=== PATIENT | female | born 2000 | race Caucasian/White ===

== ENCOUNTER → 2021-03-28 06:30 | Outpatient (CLI) | payer OTHER, SELFPAY ==
--- NOTE | 2021-03-28 06:35 | MRI_ITS ---
STUDY: MRI BRAIN WITH AND WITHOUT CONTRAST REASON FOR EXAM: Female, 21 years old. Trigeminal Neuralgia, RT SIDED JAW PAIN TECHNIQUE: Standardized multiplanar fat and water weighted pulse sequences were obtained. IV 12ml Dotarem was administered for the contrast portion of the examination. COMPARISON: None. FINDINGS: Normal size of the ventricles and extra-axial spaces for the patient''s age. Normal white matter tracts of the supratentorial brain. Normal bilateral basal ganglia. Normal thalami. There is no extra-axial fluid accumulation. Normal flow voids within the major intracranial circulation suggesting patency by spin echo criteria. Normal venous enhancement. There is no enhancing intra-axial or extra-axial abnormality. Normal sella turcica, pituitary gland, infundibular stalk, optic chiasm and hypothalamus. Normal tectal plate and pineal gland. Normal midbrain, sowmya and medulla. Normal cerebellum. Normal basal cisterns. MRI/Brain W/WO Contrast IMPRESSION: Unremarkable unenhanced and enhanced MRI of the brain. Electronically Signed: Jared Brantley MD at 15:58 EST Tel , Service support ,
== END ==
PROVIDERS: PCP Pediatrics; Referring Provider Psychiatry & Neurology Neurology; Visit Provider Psychiatry & Neurology Neurology
DX: G50.0 Trigeminal neuralgia (principal)
CPT/HCPCS: 70553; A9575